=== PATIENT | male | born 1950 | race Caucasian/White ===

== ENCOUNTER 2019-04-10 21:37 | Emergency (ER) | payer MEDICARE ==
[2019-04-10] MEDS ORDERED: Amoxicillin/Potassium Clav 875 MG TAB ONE (22:02)
== END 2019-04-10 22:05 | disposition left against medical advice (07) ==
LOC: MADERS 21:37
DX: S61.452A Open bite of left hand, initial encounter (principal); S51.852A Open bite of left forearm, initial encounter; L03.114 Cellulitis of left upper limb; W55.01XA Bitten by cat, initial encounter
CPT/HCPCS: 99283

== ENCOUNTER 2019-08-29 15:27 | Emergency (ER) | payer MEDICARE, OTHER ==
[2019-08-29] MEDS ORDERED: Aspirin Chewable 81 MG TAB ONE (15:52)
[2019-08-29] MEDS ORDERED: Nitroglycerin 2% Ointment 1 INCH/1 GM Packet ONE (15:52)
[2019-08-29] MEDS ORDERED: Fluconazole 100 MG TAB ONE (16:43)
--- NOTE | 2019-08-29 18:06 | RAD ---
Portable frontal chest radiograph: 08/29/2019 COMPARISON: None HISTORY: Chest pain FINDINGS: Lungs are hyperinflated and there is diffuse increased linear interstitial density. There i s also mild pulmonary vascular congestion. No pneumothorax or pleural fluid. No focal consolidation or alveolar edema. IMPRESSION: Interstitial prominence and pulmonary hyperinflation with mild pulmonary vascular congest ion. Interstitial prominence may signify chronic change on the basis of COPD and or interstitial edema. Etiology and chronicity is uncertain given lack of comparison imaging.
[2019-08-29 18:07] LABS: ALT (SGPT) 15 U/L (8-55); AST (SGOT) 19 U/L (5-34); Albumin 3.7 g/dL (3.4-4.8); Alkaline Phosphatase 74 U/L (40-110); Anion Gap 19 mmol/L (10-20); BUN (Urea Nitrogen) 5 mg/dL (8.4-25.7); Bilirubin, Total 0.2 mg/dL (0.2-1.2); Calc. Creatinine Clearance 0 mL/min (70-130); Calcium 9.6 mg/dL (7.8-10.44); Carbon Dioxide 20 mmol/L (23-31); Chloride 107 mmol/L (98-107); Estimated GFR-MDRD 88; Globulin 2.8 g/dL (2.4-3.5); Glucose 87 mg/dL (80-115); Potassium 4.2 mmol/L (3.5-5.1); Protein, Total 6.5 g/dL (5.8-8.1); Sodium 142 mmol/L (136-145)
[2019-08-29 18:27] LABS: Band 2 % (5-11); Eosinophils 3 % (0-10); Hemoglobin 15.8 g/dL (14.0-18.0); Lymphocytes 31 % (21-51); MDiff Complete? YES; Mean Corpuscular HGB CONC 30.9 g/dL (32.0-36.0); Mean Corpuscular Hemoglobin 28.9 pg (27.0-31.0); Mean Corpuscular Volume 93.7 fL (78.0-98.0); Mean Platelet Volume 7.1 fL (7.4-10.4); Monocytes 10 % (0-10); Neutrophil 54 % (42-75); Platelet Count 340 thou/uL (130-400); Platelet Morphology Comment Appears Adequate; RBC Distribution Width 13.7 % (11.5-14.5); Red Blood Cell (RBC) Count 5.47 mill/uL (4.70-6.10); White Blood Cell (WBC) Count 7.9 thou/uL (4.8-10.8)
== END 2019-08-29 19:10 | disposition home or self-care (01) ==
LOC: MADERS 15:27
DX: S16.1XXA Strain of muscle, fascia and tendon at neck level, initial encounter (principal); R07.89 Other chest pain; B37.0 Candidal stomatitis; E11.9 Type 2 diabetes mellitus without complications; I10 Essential (primary) hypertension; E78.00 Pure hypercholesterolemia, unspecified; Z79.899 Other long term (current) drug therapy; X50.9XXA Other and unspecified overexertion or strenuous movements or postures, initial encounter
CPT/HCPCS: 36415; 71045; 80053; 84484; 85025

== ENCOUNTER 2019-11-26 11:01 | Emergency (ER) | payer MEDICARE, OTHER ==
[2019-11-26] MEDS ORDERED: Triple Antibiotic Oint 1 GM Packet ONE (12:51)
== END 2019-11-26 13:08 | disposition home or self-care (01) ==
LOC: MADERS 11:01
DX: S61.452A Open bite of left hand, initial encounter (principal); E11.40 Type 2 diabetes mellitus with diabetic neuropathy, unspecified; K21.9 Gastro-esophageal reflux disease without esophagitis; E78.2 Mixed hyperlipidemia; I10 Essential (primary) hypertension; Z79.899 Other long term (current) drug therapy; W55.01XA Bitten by cat, initial encounter
CPT/HCPCS: 99283

== ENCOUNTER 2020-05-13 11:16 | Emergency (ER) | payer MEDICARE, OTHER ==
[2020-05-13 11:43] LABS: #Basophils 0.1 thou/uL (0.0-0.2); #Eosinphils 0.3 thou/uL (0.0-0.7); %Eosinophils 3.5 % (0.0-10.0); %Lymphocytes 26.9 % (21.0-51.0); %Monocytes 13.7 % (0.0-10.0); Hemoglobin 17.2 g/dL (14.0-18.0); Mean Corpuscular HGB CONC 31.6 g/dL (32.0-36.0); Mean Corpuscular Hemoglobin 28.1 pg (27.0-31.0); Mean Corpuscular Volume 88.8 fL (78.0-98.0); Mean Platelet Volume 7.4 fL (7.4-10.4); Platelet Count 366 thou/uL (130-400); RBC Distribution Width 13.8 % (11.5-14.5); Red Blood Cell (RBC) Count 6.12 mill/uL (4.70-6.10); White Blood Cell (WBC) Count 7.5 thou/uL (4.8-10.8)
[2020-05-13 11:51] LABS: INR-International Normal Ratio 0.9; PTT 31.3 sec (22.9-36.1); Prothrombin Time 12.1 sec (12.0-14.7)
--- NOTE | 2020-05-13 11:56 | CT ---
CT head without contrast: Multiple axial tomograms obtained through the head without IV enhancement. INDICATIONS: Numbness and tingling left arm COMPARISON: None FINDINGS: Ventricles have normal size and position. No evidence of intracranial mass, hemorrhage, edema, or infarct. Mild cortical atrophy. Mild chronic ischemic white matter change. Old lacunar infarct in the left bas al ganglia. Visualized sinuses and mastoids appear clear. Bony calvarium appears unremarkable. IMPRESSION: No acute finding
[2020-05-13 12:04] LABS: ALT (SGPT) 10 U/L (8-55); AST (SGOT) 13 U/L (5-34); Albumin 3.9 g/dL (3.4-4.8); Alkaline Phosphatase 97 U/L (40-110); Anion Gap 15 mmol/L (10-20); BUN (Urea Nitrogen) 11 mg/dL (8.4-25.7); Bilirubin, Total 0.3 mg/dL (0.2-1.2); Calc. Creatinine Clearance 0 mL/min (70-130); Calcium 8.9 mg/dL (7.8-10.44); Carbon Dioxide 24 mmol/L (23-31); Chloride 102 mmol/L (98-107); Estimated GFR-MDRD 82; Globulin 3.1 g/dL (2.4-3.5); Glucose 103 mg/dL (83-110); Potassium 4.4 mmol/L (3.5-5.1); Sodium 137 mmol/L (136-145)
[2020-05-13 12:07] LABS: CKMB 1.1 ng/mL (0-6.6); Troponin I Less than 0.010 ng/mL (< 0.028)
== END 2020-05-13 13:10 | disposition home or self-care (01) ==
LOC: MADERS 11:16
DX: R20.0 Anesthesia of skin (principal); F43.10 Post-traumatic stress disorder, unspecified; E11.40 Type 2 diabetes mellitus with diabetic neuropathy, unspecified; K21.9 Gastro-esophageal reflux disease without esophagitis; E78.5 Hyperlipidemia, unspecified; E78.00 Pure hypercholesterolemia, unspecified; I10 Essential (primary) hypertension; E78.1 Pure hyperglyceridemia; F17.210 Nicotine dependence, cigarettes, uncomplicated; Z79.899 Other long term (current) drug therapy
CPT/HCPCS: 36416; 70450; 80053; 82553; 84484; 85025; 85610; 85730; 93005

== ENCOUNTER 2021-01-08 17:24 | Emergency (ER) | payer OTHER ==
[2021-01-08] MEDS ORDERED: Lidocaine 1% w/Epinephrine 1:100K 20 ML VIAL ONE (17:44)
[2021-01-08] MEDS ORDERED: Bacitracin 1 PK ONE (18:23)
== END 2021-01-08 18:25 | disposition home or self-care (01) ==
LOC: MADERS 17:24
DX: S01.81XA Laceration without foreign body of other part of head, initial encounter (principal); I10 Essential (primary) hypertension; E78.5 Hyperlipidemia, unspecified; K21.9 Gastro-esophageal reflux disease without esophagitis; E11.40 Type 2 diabetes mellitus with diabetic neuropathy, unspecified; E78.00 Pure hypercholesterolemia, unspecified; F17.210 Nicotine dependence, cigarettes, uncomplicated; W20.8XXA Other cause of strike by thrown, projected or falling object, initial encounter
CPT/HCPCS: 12014

== ENCOUNTER 2022-04-02 11:44 | Outpatient (CLI) | payer OTHER | END 2022-04-02 11:45 | disposition home or self-care (01) | LOC: MADLAB 11:44 → MADRAD 11:45 | PROVIDERS: ATTEND Physician Assistant | DX: M50.30 Other cervical disc degeneration, unspecified cervical region (principal); M50.823 Other cervical disc disorders at C6-C7 level | CPT/HCPCS: 72040 ==

== ENCOUNTER 2022-04-10 08:26 | Emergency (ER) | payer OTHER ==
[2022-04-10] MEDS ORDERED: Ketorolac Tromethamine 30 MG/ML VIAL ONE (08:44)
[2022-04-10] MEDS ORDERED: Sodium Chloride 0.9% 500 ML ONE (08:44)
[2022-04-10 09:14] LABS: #Basophils 0.2 thou/uL (0.0-0.2); #Eosinphils 0.6 thou/uL (0.0-0.7); #Lymphocytes 1.8 thou/uL (1.20-3.40); #Monocytes 1.1 thou/uL (0.11-0.59); %Basophils 2.5 % (0.0-1.0); %Eosinophils 7.1 % (0.0-10.0); %Lymphocytes 20.6 % (21.0-51.0); %Monocytes 12.8 % (0.0-10.0); Bilirubin Negative (Negative); Blood, Urine Negative (Negative); Glucose, Urine (Dipstick) Negative (Negative); Hemoglobin 16.2 g/dL (14.0-18.0); Ketone, Urine Negative (Negative); Leukocyte Negative (Negative); Mean Corpuscular HGB CONC 32.5 g/dL (32.0-36.0); Mean Corpuscular Hemoglobin 28.6 pg (27.0-31.0); Mean Corpuscular Volume 88.1 fL (78.0-98.0); Mean Platelet Volume 7.9 fL (7.4-10.4); Nitrite Negative (Negative); Platelet Count 307 thou/uL (130-400); Protein, Urine (Dipstick) Negative (Neg-Trace); RBC Distribution Width 13.9 % (11.5-14.5); Red Blood Cell (RBC) Count 5.66 mill/uL (4.70-6.10); Urobilinogen 0.2 mg/dL (Less than 2); White Blood Cell (WBC) Count 8.8 thou/uL (4.8-10.8); pH, Urine 5.5 (5.0-9.0)
[2022-04-10 09:17] LABS: Clarity Clear (Clear); Specific Gravity, Urine 1.006 (1.002-1.036)
[2022-04-10 09:31] LABS: ALT (SGPT) 10 U/L (8-55); AST (SGOT) 11 U/L (5-34); Albumin 3.8 g/dL (3.4-4.8); Alkaline Phosphatase 85 U/L (40-110); Anion Gap 15 mmol/L (10-20); BUN (Urea Nitrogen) 7 mg/dL (8.4-25.7); Bilirubin, Total 0.6 mg/dL (0.2-1.2); Calc. Creatinine Clearance 0 mL/min (70-130); Calcium 9.6 mg/dL (7.8-10.44); Carbon Dioxide 25 mmol/L (23-31); Chloride 103 mmol/L (98-107); Estimated GFR 92; Globulin 3.2 g/dL (2.4-3.5); Glucose 109 mg/dL (83-110); Potassium 4.6 mmol/L (3.5-5.1); Sodium 138 mmol/L (136-145)
[2022-04-10 09:49] LABS: Lipase Less than 4 U/L (8-78)
== END 2022-04-10 09:59 | disposition home or self-care (01) ==
LOC: MADERS 08:26
DX: R10.9 Unspecified abdominal pain (principal); N28.1 Cyst of kidney, acquired; N40.0 Benign prostatic hyperplasia without lower urinary tract symptoms; E11.40 Type 2 diabetes mellitus with diabetic neuropathy, unspecified; K21.9 Gastro-esophageal reflux disease without esophagitis; E78.2 Mixed hyperlipidemia; I10 Essential (primary) hypertension; F17.210 Nicotine dependence, cigarettes, uncomplicated; Z79.899 Other long term (current) drug therapy
CPT/HCPCS: 74176; 80053; 81003; 83690; 85025; 96374; J1885; J7030

== ENCOUNTER 2023-05-12 08:29 | Emergency (ER) | payer OTHER ==
[2023-05-12] MEDS ORDERED: Aspirin Chewable 81 MG TAB ONE (08:55)
[2023-05-12 09:34] LABS: #Basophils 0.2 thou/uL (0.0-0.2); #Eosinphils 0.4 thou/uL (0.0-0.7); #Lymphocytes 1.4 thou/uL (1.20-3.40); #Monocytes 0.8 thou/uL (0.11-0.59); #Neutrophils 4.1 thou/uL (1.40-6.50); %Basophils 2.4 % (0.0-1.0); %Eosinophils 6.3 % (0.0-10.0); %Lymphocytes 19.9 % (21.0-51.0); %Monocytes 12.1 % (0.0-10.0); %Neutrophils 59.3 % (42.0-75.0); Hematocrit 45.8 % (42.0-52.0); Hemoglobin 15.4 g/dL (14.0-18.0); Mean Corpuscular HGB CONC 33.6 g/dL (32.0-36.0); Mean Corpuscular Hemoglobin 29.7 pg (27.0-31.0); Mean Corpuscular Volume 88.4 fl (78.0-98.0); Mean Platelet Volume 8.5 fL (7.4-10.4); Platelet Count 288 10x3/uL (130-400); RBC Distribution Width 14.5 % (11.5-14.5); Red Blood Cell (RBC) Count 5.18 mill/uL (4.70-6.10); White Blood Cell (WBC) Count 6.9 10x3/uL (4.8-10.8)
[2023-05-12 09:49] LABS: ALT (SGPT) 14 U/L (8-55); AST (SGOT) 13 U/L (5-34); Albumin 3.8 g/dL (3.4-4.8); Alkaline Phosphatase 78 U/L (40-110); Anion Gap 12 mmol/L (10-20); BUN (Urea Nitrogen) 9 mg/dL (8.4-25.7); Bilirubin, Total 0.4 mg/dL (0.2-1.2); Calc. Creatinine Clearance 0 mL/min (70-130); Calcium 9.5 mg/dL (7.8-10.44); Carbon Dioxide 24 mmol/L (23-31); Chloride 105 mmol/L (98-107); Estimated GFR 87; Globulin 2.9 g/dL (2.4-3.5); Glucose 103 mg/dL (83-110); Potassium 4.4 mmol/L (3.5-5.1); Protein, Total 6.7 g/dL (5.8-8.1); Sodium 137 mmol/L (136-145)
== END 2023-05-12 10:45 | disposition home or self-care (01) ==
LOC: MADERS 08:29
DX: I63.9 Cerebral infarction, unspecified (principal); J44.9 Chronic obstructive pulmonary disease, unspecified; E11.40 Type 2 diabetes mellitus with diabetic neuropathy, unspecified; I10 Essential (primary) hypertension; F17.210 Nicotine dependence, cigarettes, uncomplicated; Z79.899 Other long term (current) drug therapy
CPT/HCPCS: 70450; 71045; 80053; 83735; 83880; 84484; 85025; 93005

== ENCOUNTER 2024-10-20 22:42 | Emergency (ER) | payer OTHER ==
[2024-10-21] LABS: Hematocrit 49.4 % (42.0-52.0); Hemoglobin 15.5 g/dL (14.0-18.0); Mean Corpuscular HGB CONC 31.4 g/dL (32.0-36.0); Mean Corpuscular Hemoglobin 27.5 pg (27.0-31.0); Mean Corpuscular Volume 87.6 fl (78.0-98.0); Mean Platelet Volume 7.4 fL (7.4-10.4); Platelet Count 336 10x3/uL (130-400); RBC Distribution Width 13.3 % (11.5-14.5); Red Blood Cell (RBC) Count 5.64 mill/uL (4.70-6.10); White Blood Cell (WBC) Count 9.9 10x3/uL (4.8-10.8)
[2024-10-21 00:13] LABS: ALT (SGPT) 17 U/L (8-55); AST (SGOT) 14 U/L (5-34); Albumin 3.5 g/dL (3.4-4.8); Alkaline Phosphatase 66 U/L (40-110); Anion Gap 19 mmol/L (10-20); BUN (Urea Nitrogen) 13 mg/dL (8.4-25.7); Bilirubin, Total 0.5 mg/dL (0.2-1.2); Calc. Creatinine Clearance 0 mL/min (70-130); Calcium 8.9 mg/dL (7.8-10.44); Carbon Dioxide 23 mmol/L (23-31); Chloride 100 mmol/L (98-107); Estimated GFR 66; Globulin 1.8 g/dL (2.4-3.5); Glucose 82 mg/dL (83-110); Potassium 4.4 mmol/L (3.5-5.1); Protein, Total 5.3 g/dL (5.8-8.1); Sodium 138 mmol/L (136-145)
[2024-10-21 00:14] LABS: Troponin I 0.011 ng/mL (< 0.028)
[2024-10-21 00:19] LABS: Band 3 % (5-11); Eosinophils 4 % (0-10); Lymphocytes 12 % (21-51); MDiff Complete? YES; Monocytes 5 % (0-10); Neutrophil 76 % (42-75); Platelet Adequacy Comment Appears Adequate
== END 2024-10-21 00:50 | disposition home or self-care (01) ==
LOC: MADERS 22:42
DX: R55 Syncope and collapse (principal); G45.9 Transient cerebral ischemic attack, unspecified; J44.9 Chronic obstructive pulmonary disease, unspecified; E11.40 Type 2 diabetes mellitus with diabetic neuropathy, unspecified; K21.9 Gastro-esophageal reflux disease without esophagitis; I10 Essential (primary) hypertension; E78.5 Hyperlipidemia, unspecified; F17.210 Nicotine dependence, cigarettes, uncomplicated
CPT/HCPCS: 36416; 71046; 80053; 84484; 85025; 93005